=== PATIENT | female | born 1975 | race Caucasian/White ===

== ENCOUNTER → 2017-10-04 | Outpatient (CLI) | payer BC ==
[~2017-10-04] MED LIST: LOTREL 5-20 MG1 EACH PO
--- NOTE | ~2017-10-04 | EKG ---
[place] [address] [facility] [employer] [place] [place] [address] ELECTROCARDIOGRAM REPORT Name: CARMELA MINOR Room #: [facility]#: [id number] Admission: 10/04/17 Attend Phys: Ml Ernst MD, Discharge: Date of : 75 Report #: [id number] THIS REPORT FOR: //name// [facility] Test Date: 2017-10-04 Test Time: 08:38:28 Pat Name: CARMELA MINOR Department: Room: Gender: F Mailroom Manager: TOMY : 1975 Requested By: Ml Ernst Order Number: [id number] MD: Srinivas Oscar Measurements Intervals [place] Rate: 68 P: 69 IN: 180 QRS: 28 QRSD: 109 T: 45 QT: 382 QTc: 407 Interpretive Statements Sinus rhythm Normal tracing Baseline wander in lead(s) V6 No previous ECG available for comparison Electronically Signed On 10-04-2017 8:46:57 SPECIAL PROCEDURES NURSE by Srinivas Oscar [email or web address] <ELECTRONICALLY SIGNED> By: Srinivas Oscar MD, [facility] 10/04/17 [id number] [id number] Srinivas Oscar MD, FAC /EPI
== END ==
LOC: CV 08:21
DX: Z01.818 Encounter for other preprocedural examination (principal); M41.84 Other forms of scoliosis, thoracic region; Z90.49 Acquired absence of other specified parts of digestive tract

== ENCOUNTER 2017-10-31 13:49 | Emergency (ER) | payer BC ==
[~2017-10-31] VITALS: Ht 160 cm; Wt 72.6 kg
[2017-10-31] MEDS ORDERED: LOTREL 5-20 MG1 EACH PO (14:16)
[2017-10-31 14:33] LABS: URINE BILIRUBIN NEGATIVE (Negative); URINE BLOOD NEGATIVE (Negative); URINE CLARITY CLEAR; URINE COLOR YELLOW; URINE GLUCOSE-RANDOM* NEGATIVE (Negative); URINE KETONES TRACE (Negative); URINE LEUKOCYTES-REFLEX NEGATIVE (Negative); URINE NITRITE-REFLEX NEGATIVE (Negative); URINE PROTEIN (DIPSTICK) NEGATIVE (Negative); URINE UROBILINOGEN 0.2 E.U./dl (0.2-1.0)
[2017-10-31 14:49] LABS: ABSOLUTE NEUTROPHILS 4.2 thou/uL (1.4-8.2); BASOPHILS 1.1 % (0.0-2.0); EOSINOPHILS 11.1 % (0.0-3.0); HEMATOCRIT 38.6 % (37.0-47.0); LYMPHOCYTES 32.3 % (24.0-44.0); MCH 27.6 pg (26.0-34.0); MCHC 33.6 g/dL (28.0-37.0); MONOCYTES 7.8 % (1.0-8.0); PLATELET COUNT 348 thou/uL (150-400); POLYS 47.7 % (36.0-66.0); RDW 14.7 % (10.5-14.5); WBC 8.8 thou/uL (4.0-11.0)
[2017-10-31 14:58] LABS: CALCIUM 9.1 mg/dL (8.5-10.1); CREATININE 0.8 mg/dL (0.6-1.0)
[2017-10-31 15:05] LABS: ALBUMIN 3.3 g/dL (3.4-5.0); TOTAL BILIRUBIN 0.3 mg/dL (<0.1-1.0)
[2017-10-31 16:32] VITALS: BP 147/87
== END 2017-10-31 16:33 | disposition home or self-care (01) ==
LOC: ER 13:49
PROVIDERS: Emergency Medicine
DX: K59.00 Constipation, unspecified (principal); Z98.84 Bariatric surgery status; Z88.0 Allergy status to penicillin; Z88.1 Allergy status to other antibiotic agents